=== PATIENT | female | born 1985 | race Caucasian/White ===

== ENCOUNTER → 2019-07-08 13:23 | Outpatient (BNVA) | payer SELFPAY | PROVIDERS: Family Provider Nurse Practitioner; PCP Nurse Practitioner; Visit Provider Nurse Practitioner | DX: M54.2 Cervicalgia (principal); M25.511 Pain in right shoulder; Z98.890 Other specified postprocedural states | CPT/HCPCS: 72040; 72072; 73030 ==

== ENCOUNTER → 2019-12-24 09:33 | Outpatient (BNVA) | payer SELFPAY | PROVIDERS: Family Provider Nurse Practitioner; PCP Nurse Practitioner; Visit Provider Nurse Practitioner Family | DX: R07.89 Other chest pain (principal); R10.2 Pelvic and perineal pain | CPT/HCPCS: 71046; 80053; 81000; 85025; 87491; 87591; 87661 ==

== ENCOUNTER → 2020-06-24 09:39 | Outpatient (BNVA) | payer SELFPAY | PROVIDERS: Family Provider Nurse Practitioner; PCP Nurse Practitioner; Visit Provider Nurse Practitioner | DX: F41.9 Anxiety disorder, unspecified (principal); E55.9 Vitamin D deficiency, unspecified | CPT/HCPCS: 82306; 85025 ==

== ENCOUNTER 2021-03-03 12:37 | Emergency (ER) | payer MEDICAID, SELFPAY ==
[2021-03-03 12:47] VITALS: BP 120/83; PULSE 87; RESP 20; TEMP 36.6; O2SAT 99; BMI 32.7
--- NOTE | 2021-03-03 15:24 | CT_ITS ---
WS: [id number] CT ABDOMEN AND PELVIS NONCONTRAST HISTORY: R flank pain TECHNIQUE: Imaging performed through the abdomen and pelvis. Coronal and sagittal reformats are submi tted. All CT scans at [facility] use at least one of these dose optimization techniques: auto mated exposure control; mA and/or kV adjustment per patient size (includes targeted exams where dose is matched to clinical indication); or iterative reconstruction. DLP: 1253.9 mGy.cm COMPARISON: None available. Lower thorax: Lung bases are clear. Visualized heart is normal. No hiatal hernia. Liver: Normal size liver. No mass or bile duct dilatation. Gallbladder: Normal gallbladder. Pancreas: Normal size and attenuation. Normal pancreatic duct. No pancreatitis or mass. Spleen: Normal. Adrenal glands: Normal. No mass. Right kidney: Normal size kidney with no mass or hydronephrosis. Left kidney: Normal size kidney. Nonobstructing renal calcifications in the mid to lower kidney with the largest measuring 6 mm. No ureteral obstruction or calcification. Aorta: Normal abdominal aorta, no aneurysm or atherosclerosis. No free fluid, intraperitoneal air or significant lymphadenopathy. GI tract: Normal appendix. No GI tract obstruction or diverticulosis. Abdominal wall: Small umbilical hernia contains fat only. Pelvis: Anteverted uterus is small amount of fluid along the endometrial canal. This may be physiolog ic. Osseous structures: Unremarkable. CT/CT kidney stone [id number] IMPRESSION: 1. Normal appendix. 2. No hydronephrosis. 3. Nonobstructing calcifications LEFT kidney. 4. No ureteral calcifications.
--- NOTE | 2021-03-03 15:26 | ED_ITS ---
Documented by User: Bella Elaine PA-C 03/03/21 16:50 HPI - Abdominal Pain General: Chief Complaint: Abdominal Pain Stated Complaint: PCP SENT POSS APENDX Time Seen by Provider: 03/03/21 15:19 Source: patient Mode of arrival: ambulatory Limitations: no limitations History of Present Illness: HPI narrative: 35-year-old female presents to the ER today for right lower quadrant and flank pain x4 days. Patient was seen by PCP today who was concerned about stone versus appendicitis. They did do a UA there and noted blood in patient's urine. Patient does report a history of a stone while she was however this feels slightly different as the last time was more suprapubic pain. Patient reports pain is worse with movement. patient reports she had some diarrhea that also started the same day as the right lower quadrant pain. She denies any fever or chills. Denies any other urinary symptoms at this time. She has been taking [id number] medications at this time. Patient denies any headache, chest pain, shortness of breath, nausea, vomiting. MD elicited complaint: flank pain Pertinent past history: other (diarrhea) Onset (ago): day(s) (4) Pain Consistency: constant and other (worse with movement and lying on the R side) Location: RLQ and R flank Severity: moderate Quality: stabbing and aching Radiation: R flank Relieving factors: nothing Associated Symptoms: Reports diarrhea and hematuria; Denies chills, constipation, dysuria, fever(s), nausea and vomiting Related Data: Date of Last Menstrual Period: 06/01/20 Review of Systems Const: Denies: fever(s), chills or fatigue ENMT: Denies: throat pain, nasal discharge or nasal congestion Card: Denies: chest pain or palpitations Resp: Denies: dyspnea, productive cough or wheezing GI: Reports: abdominal pain and diarrhea; Denies: nausea, vomiting or constipation : Reports: flank pain (R flank) and hematuria; Denies: dysuria, urinary frequency, urinary urgency or urinary hesitancy Musc: Reports: back pain (R low back) Skin/Breast: Denies: rash Neuro: Denies: headache(s) PFS ED PFSH: Medical History (Updated 03/03/21 @ 16:41 by Bella Elaine PA-C) Cervical neuralgia Chronic right shoulder pain Surgical History History of tubal ligation 2013 Status post right rotator cuff repair 2014 Family History Mother Cancer Diabetes Hypertension Father Hypertension Social History Smoking and tobacco status: never smoked Smoking risk assessment/counseling performed?: No Alcohol intake: never Desire information about alcohol rehabilitation?: No Counseling given: No Desire information about substance/drug rehabilitation?: No Counseling given: No Adopted: No Caregiver/support person: No Lives independently: Yes Household members: children and other Housing: House Marital status: Single Number of children: 3 service: No Current occupational status: employed Pets and animals: Yes History of recent travel: No Current gender identity: Female Female Reproductive History: Date of last menstrual period: 06/01/20 Physical Exam Const: COMMON NORMALS: average body habitus and patient oriented x3 GENERAL APPEARANCE: cooperative; not comfortable (slightly uncomfortable when lying flat) HENMT: COMMON NORMALS: normocephalic HEAD & SCALP: normocephalic Neck/C-Spine: COMMON NORMALS: no lymphadenopathy Resp: COMMON NORMALS: normal respiratory effort, No retractions and clear to auscultation bilaterally EFFORT & INSPECTION: Yes able to speak in complete sentences AUSCULTATION: clear to auscultation bilaterally, no rales, no rhonchi and no wheezes Cardio: COMMON NORMALS: regular rate, regular rhythm and No murmurs present (Cardio) RATE: regular rate RHYTHM: regular rhythm GI: COMMON NORMALS: Soft to palpation PALPATION: Yes Soft to palpation and Yes Tenderness to palpation present (GI) (RLQ/R flank) Details: RLQ : COMMON NORMALS: Yes no CVA tenderness BLADDER/KIDNEY EXAM: Yes no CVA tenderness, No CVA tenderness and Yes other (R flank tenderness to palpation, no suprapubic tenderness) Back/Pelvis: COMMON NORMALS: no CVA tenderness GENERAL BACK: No CVA tenderness Extremity: COMMON NORMALS: normal to inspection and full ROM Neuro: COMMON NORMALS: patient oriented x3 and moves all extremities Psych: COMMON NORMALS: mental status grossly normal and Normal thought process present THOUGHT PROCESS: Normal thought process present Skin: COMMON NORMALS: no rashes or lesions noted GENERAL SKIN EXAM: no rashes or lesions noted Course ED course: 35-year-old female presents to the ER today for right lower quadrant/flank pain x4 days. Patient was sent by PCP to rule out appendicitis versus kidney stone. Patient does have a history of a kidney stone however this feels slightly different. Denies any fever or chills at this time. Has some diarrhea associated but no other symptoms. Patient did have a UA done at the doctor's office which showed blood in her urine. Reevaluation(s): Reevaluation #1: Patient is comfortable at this time. Patient reports very minimal pain. Report given to Agustin Celestin at shift change. Waiting for a UA and then patient will be discharged. Vital Signs: Vital signs: Vital Signs Temperature 98.2 F 03/03/21 15:55 Pulse Rate 65 03/03/21 15:55 Respiratory Rate 17 03/03/21 15:55 Blood Pressure 127/69 03/03/21 15:55 Pulse Oximetry 98 03/03/21 15:55 MDM - Abdominal Pain Lab Data: Lab results narrative: CBC- WNL CMP- unremarkable Labs: Lab Results 03/03/21 03/03/21 03/03/21 12:43 12:43 16:03 WBC 6.8 10^3/uL 10^3/ uL (4.0-10.0) RBC 4.11 10^6/uL 10^6 /uL (4.1-5.3) Hgb 12.8 g/dL g/dL (11.5-15.3) Hct 36.6 % L % (37.0-47.0) MCV 89.1 fl fl (81-99) MCH 31.1 pg pg (28.0-34.0) MCHC 35.0 g/dL g/dL (30.0-36.0) RDW 12.6 % % (12.1-15.1) Plt Count 294 10^3/cmm 10^3 /cmm (130-400) MPV 9.2 fL fL (7.4-10.4) Neut % (Auto) 59.2 % % Lymph % (Auto) 30.8 % % [place] % (Auto) 8.6 % % Eos % (Auto) 1.0 % % Baso % (Auto) 0.3 % % Neut # (Auto) 3.99 10^3/uL 10^3 /uL (1.8-7.7) Lymph # (Auto) 2.1 10^3/uL 10^3/ uL (0.8-4.8) [place] # (Auto) 0.6 10^3/uL 10^3/ uL (0.2-0.9) Eos # (Auto) 0.1 10^3/uL 10^3/ uL (0.0-0.8) Baso # (Auto) 0.0 10^3/uL 10^3/ uL (0.0-0.1) Nucleated RBC % (a uto) 0 % % Nucleated RBCs # 0.0 /100WBC /100W BC Sodium Potassium Chloride Carbon Dioxide Anion Gap BUN Creatinine GFR Calculation Glucose Calculated Osmolal ity Calcium Total Bilirubin AST ALT Alkaline Phosphata se Total Protein Albumin Globulin Lipase HCG, Qual Negative (Negative) Urine Color Yellow (Yellow) Urine Appearance Clear (CLEAR) Urine pH 6.5 (5-7) Ur Specific Gravit y 1.010 (1.005-1.030) Urine Protein Neg (Negative) Urine Glucose (UA) Norm (Normal) Urine Ketones Negative (Negative) Urine Blood 2+ H (Negative) Urine Nitrate Negative (Negative) Urine Bilirubin Neg (Negative) Urine Urobilinogen Norm mg/dL mg/dL (Negative) Ur Leukocyte Lyla ase Negative (Negative) Urine RBC 5-10 /hpf H /hpf (0-2) Urine WBC 0-4 /hpf H /hpf (0-5) Ur Squamous Epith Cells 5-10 /hpf H /hpf (0-5) Amorphous Sediment Not Reportable Urine Bacteria 1+ /hpf H /hpf (NONE) Urine Mucus 1+ /hpf /hpf 03/03/21 16:03 WBC RBC Hgb Hct MCV MCH MCHC RDW Plt Count MPV Neut % (Auto) Lymph % (Auto) [place] % (Auto) Eos % (Auto) Baso % (Auto) Neut # (Auto) Lymph # (Auto) [place] # (Auto) Eos # (Auto) Baso # (Auto) Nucleated RBC % (a uto) Nucleated RBCs # Sodium 141 mmol/L mmol/L (136-145) Potassium 4.1 mmol/L mmol/L (3.5-5.1) Chloride 109 mmol/L H mmol /L (98-107) Carbon Dioxide 22 mmol/L mmol/L (22-29) Anion Gap 14.1 (5-19) BUN 8 mg/dL mg/dL (6-20) Creatinine 0.4 mg/dL L mg/dL (0.5-0.9) GFR Calculation 181.6 mL/min H mL /min (90-130) Glucose 74 mg/dL mg/dL (65-115) Calculated Osmolal ity 289 mOsm/kg mOsm/ kg (285-295) Calcium 8.9 mg/dL mg/dL (8.5-10.5) Total Bilirubin 0.2 mg/dL mg/dL (0.15-1.2) AST 22 U/L U/L (0-32) ALT 20 U/L U/L (0-33) Alkaline Phosphata se 43 IU/L IU/L (35-105) Total Protein 7.1 g/dL g/dL (6.6-8.7) Albumin 4.1 g/dL g/dL (3.5-5.2) Globulin 3.0 g/dL g/dL (1.3-4.6) Lipase 20 U/L U/L (13-60) HCG, Qual Urine Color Urine Appearance Urine pH Ur Specific Gravit y Urine Protein Urine Glucose (UA) Urine Ketones Urine Blood Urine Nitrate Urine Bilirubin Urine Urobilinogen Ur Leukocyte Lyla ase Urine RBC Urine WBC Ur Squamous Epith Cells Amorphous Sediment Urine Bacteria Urine Mucus Imaging Data ^: CT Abd/Pel: Radiologist's impression: [address] [address] [address] Scan Report Signed Patient: Irma Damon Unit #: [id number] : 1985 Age/Sex: 35 / F ADM Date: 03/03/21 Loc: ER Room/Bed: Attending Dr: Ordering Provider/Ordering MD: Bella Elaine Date of Service: 03/03/21 Procedure(s): CT kidney stone [id number] Accession Number(s): [id number] Report Number: [id number] WS: [id number] CT ABDOMEN AND PELVIS NONCONTRAST HISTORY: R flank pain TECHNIQUE: Imaging performed through the abdomen and pelvis. Coronal and sagittal reformats are submitted. All CT scans at [facility] use at least one of these dose optimization techniques: automated exposure control; mA and/or kV adjustment per patient size (includes targeted exams where dose is matched to clinical indication); or iterative reconst ruction. DLP: 1253.9 mGy.cm COMPARISON: None available. Lower thorax: Lung bases are clear. Visualized heart is normal. No hiatal hernia. Liver: Normal size liver. No mass or bile duct dilatation. Gallbladder: Normal gallbladder. Pancreas: Normal size and attenuation. Normal pancreatic duct. No pancreatitis or mass. Spleen: Normal. Adrenal glands: Normal. No mass. Right kidney: Normal size kidney with no mass or hydronephrosis. Left kidney: Normal size kidney. Nonobstructing renal calcifications in the mid to lower kidney with the largest measuring 6 mm. No ureteral obstruction or calcification. Aorta: Normal abdominal aorta, no aneurysm or atherosclerosis. No free fluid, intraperitoneal air or significant lymphadenopathy. GI tract: Normal appendix. No GI tract obstruction or diverticulosis. Abdominal wall: Small umbilical hernia contains fat only. Pelvis: Anteverted uterus is small amount of fluid along the endometrial canal. This may be physiologic. Osseous structures: Unremarkable. CT/CT kidney stone [id number] IMPRESSION: 1. Normal appendix. 2. No hydronephrosis. 3. Nonobstructing calcifications LEFT kidney. 4. No ureteral calcifications. Dictated By: Sindhu Jensen DO Signed By: Sindhu Jensen DO Signed Date/Time: 03/03/21 1600 DD/ 1556 Critical Care Time Critical Care Time: Critical Care Time: No Discharge Plan Discharge Patient Disposition: Home Clinical Impression: Abdominal pain, RLQ Condition: Stable Prescriptions: No Action acetaminophen PO PRNRF: 0 triamcinolone acetonide 0.1 % cream 1 applic TOPICAL BID PRN (Reason: itching) Qty: 30 RF: 0 doxepin 50 mg capsule 50 - 100 mg PO BID Qty: 90 RF: 5 cetirizine [Zyrtec] 10 mg tablet 10 mg PO DAILY Qty: 30 RF: 5 famotidine [Pepcid] 20 mg tablet 20 mg PO Q12H Qty: 60 RF: 5 zonisamide 100 mg capsule 100 mg PO BID Qty: 60 RF: 5 Discharge Orders: Discharge ED (Routine); Ordered 10/01/21 Ordered By: Agustin Celestin Referrals: Lizzy Pal FNP-C [Primary Care Provider] - Discharge Diet: Usual diet Discharge Activity: Resume usual activity Patient Instructions: Abdominal Pain (ED), Opioid Safety Activity Restrictions/Additional Instructions: Home and rest. Drink plenty of fluids. Use acetaminophen and ibuprofen for pain. Activity as tolerated. Follow-up with primary care as needed. Monitor for worsening pain, high fever, or new concerns. Sign Out Sign Out Data: Patient Sign Out occurred on 03/03/21 at 16:57. Patient's care was discussed, and care was transferred from to Agustin Celestin. Coding Level of Care Code ED Shampooer for Chg Fwd Exam Comprehensive Documented by User: DIANNE Merida 03/03/21 18:02 HPI - Abdominal Pain General: Chief Complaint: Abdominal Pain Stated Complaint: PCP SENT POSS APENDX Time Seen by Provider: 03/03/21 15:19 PENDING SALE TO [facility] ED PFSH: Medical History (Updated 03/03/21 @ 16:41 by Bella Elaine PA-C) Cervical neuralgia Chronic right shoulder pain Surgical History History of tubal ligation 2013 Status post right rotator cuff repair 2014 Family History Mother Cancer Diabetes Hypertension Father Hypertension Social History Smoking and tobacco status: never smoked Smoking risk assessment/counseling performed?: No Alcohol intake: never Desire information about alcohol rehabilitation?: No Counseling given: No Desire information about substance/drug rehabilitation?: No Counseling given: No Adopted: No Caregiver/support person: No Lives independently: Yes Household members: children and other Housing: House Marital status: Single Number of children: 3 service: No Current occupational status: employed Pets and animals: Yes History of recent travel: No Current gender identity: Female Course Vital Signs: Vital signs: Vital Signs Temperature 98.2 F 03/03/21 15:55 Pulse Rate 65 03/03/21 15:55 Respiratory Rate 17 03/03/21 15:55 Blood Pressure 127/69 03/03/21 15:55 Pulse Oximetry 98 03/03/21 15:55 MDM - Abdominal Pain MDM Narrative: Medical decision making narrative: Patient was referred to the ER from urgent care for concerns of right lower quadrant pain to rule out appendicitis. I received this patient from Bella Elaine PA-C. Patient appears well on my exam. Patient has some right lower quadrant tenderness. Bowel sounds are present. Skin is warm and dry. We were awaiting urinalysis report. CT and labs were unremarkable. Urinalysis came back with significant amount of squamous cells trace of red blood cells and a trace of white blood cells. It was suspected patient had a ruptured ovarian cyst due to a small amount of fluid in the free pelvis. I reviewed with patient need for monitoring for fever, worsening pain, or blood in vomit or stool. Patient reported understanding and need for return and follow-up. Differential Diagnosis: Differential diagnosis abdominal pain: Likely abdominal pain, acute appendicitis, calculus of kidney and constipation Lab Data: Labs: Lab Results 03/03/21 03/03/21 03/03/21 12:43 12:43 16:03 WBC 6.8 10^3/uL 10^3/ uL (4.0-10.0) RBC 4.11 10^6/uL 10^6 /uL (4.1-5.3) Hgb 12.8 g/dL g/dL (11.5-15.3) Hct 36.6 % L % (37.0-47.0) MCV 89.1 fl fl (81-99) MCH 31.1 pg pg (28.0-34.0) MCHC 35.0 g/dL g/dL (30.0-36.0) RDW 12.6 % % (12.1-15.1) Plt Count 294 10^3/cmm 10^3 /cmm (130-400) MPV 9.2 fL fL (7.4-10.4) Neut % (Auto) 59.2 % % Lymph % (Auto) 30.8 % % [place] % (Auto) 8.6 % % Eos % (Auto) 1.0 % % Baso % (Auto) 0.3 % % Neut # (Auto) 3.99 10^3/uL 10^3 /uL (1.8-7.7) Lymph # (Auto) 2.1 10^3/uL 10^3/ uL (0.8-4.8) [place] # (Auto) 0.6 10^3/uL 10^3/ uL (0.2-0.9) Eos # (Auto) 0.1 10^3/uL 10^3/ uL (0.0-0.8) Baso # (Auto) 0.0 10^3/uL 10^3/ uL (0.0-0.1) Nucleated RBC % (a uto) 0 % % Nucleated RBCs # 0.0 /100WBC /100W BC Sodium Potassium Chloride Carbon Dioxide Anion Gap BUN Creatinine GFR Calculation Glucose Calculated Osmolal ity Calcium Total Bilirubin AST ALT Alkaline Phosphata se Total Protein Albumin Globulin Lipase HCG, Qual Negative (Negative) Urine Color Yellow (Yellow) Urine Appearance Clear (CLEAR) Urine pH 6.5 (5-7) Ur Specific Gravit y 1.010 (1.005-1.030) Urine Protein Neg (Negative) Urine Glucose (UA) Norm (Normal) Urine Ketones Negative (Negative) Urine Blood 2+ H (Negative) Urine Nitrate Negative (Negative) Urine Bilirubin Neg (Negative) Urine Urobilinogen Norm mg/dL mg/dL (Negative) Ur Leukocyte Lyla ase Negative (Negative) Urine RBC 5-10 /hpf H /hpf (0-2) Urine WBC 0-4 /hpf H /hpf (0-5) Ur Squamous Epith Cells 5-10 /hpf H /hpf (0-5) Amorphous Sediment Not Reportable Urine Bacteria 1+ /hpf H /hpf (NONE) Urine Mucus 1+ /hpf /hpf 03/03/21 16:03 WBC RBC Hgb Hct MCV MCH MCHC RDW Plt Count MPV Neut % (Auto) Lymph % (Auto) [place] % (Auto) Eos % (Auto) Baso % (Auto) Neut # (Auto) Lymph # (Auto) [place] # (Auto) Eos # (Auto) Baso # (Auto) Nucleated RBC % (a uto) Nucleated RBCs # Sodium 141 mmol/L mmol/L (136-145) Potassium 4.1 mmol/L mmol/L (3.5-5.1) Chloride 109 mmol/L H mmol /L (98-107) Carbon Dioxide 22 mmol/L mmol/L (22-29) Anion Gap 14.1 (5-19) BUN 8 mg/dL mg/dL (6-20) Creatinine 0.4 mg/dL L mg/dL (0.5-0.9) GFR Calculation 181.6 mL/min H mL /min (90-130) Glucose 74 mg/dL mg/dL (65-115) Calculated Osmolal ity 289 mOsm/kg mOsm/ kg (285-295) Calcium 8.9 mg/dL mg/dL (8.5-10.5) Total Bilirubin 0.2 mg/dL mg/dL (0.15-1.2) AST 22 U/L U/L (0-32) ALT 20 U/L U/L (0-33) Alkaline Phosphata se 43 IU/L IU/L (35-105) Total Protein 7.1 g/dL g/dL (6.6-8.7) Albumin 4.1 g/dL g/dL (3.5-5.2) Globulin 3.0 g/dL g/dL (1.3-4.6) Lipase 20 U/L U/L (13-60) HCG, Qual Urine Color Urine Appearance Urine pH Ur Specific Gravit y Urine Protein Urine Glucose (UA) Urine Ketones Urine Blood Urine Nitrate Urine Bilirubin Urine Urobilinogen Ur Leukocyte Lyla ase Urine RBC Urine WBC Ur Squamous Epith Cells Amorphous Sediment Urine Bacteria Urine Mucus Discharge Plan Discharge Patient Disposition: Home Clinical Impression: Abdominal pain, RLQ Condition: Stable Prescriptions: No Action acetaminophen PO PRNRF: 0 triamcinolone acetonide 0.1 % cream 1 applic TOPICAL BID PRN (Reason: itching) Qty: 30 RF: 0 doxepin 50 mg capsule 50 - 100 mg PO BID Qty: 90 RF: 5 cetirizine [Zyrtec] 10 mg tablet 10 mg PO DAILY Qty: 30 RF: 5 famotidine [Pepcid] 20 mg tablet 20 mg PO Q12H Qty: 60 RF: 5 zonisamide 100 mg capsule 100 mg PO BID Qty: 60 RF: 5 Discharge Orders: Discharge ED (Routine); Ordered 03/03/21 Ordered By: Agustin Celestin Referrals: Lizzy Pal, JOHANNA [Primary Care Provider] - Discharge Diet: Usual diet Discharge Activity: Resume usual activity Patient Instructions: Abdominal Pain (ED), Opioid Safety Activity Restrictions/Additional Instructions: Home and rest. Drink plenty of fluids. Use acetaminophen and ibuprofen for pain. Activity as tolerated. Follow-up with primary care as needed. Monitor for worsening pain, high fever, or new concerns. Sign Out Sign Out Data: Patient Sign Out occurred on 03/03/21 at 16:57. Patient's care was discussed, and care was transferred from to Agustin Celestin. Coding Level of Care Code ED Shampooer for Chg Fwd Exam Comprehensive
[2021-03-03 15:55] VITALS: BP 127/69; PULSE 65; RESP 17; TEMP 36.8; O2SAT 98
[2021-03-03 16:14] LABS: Basophils % 0.3 %; Eosinophils # 0.1 10^3/uL (0.0-0.8); Hematocrit 36.6 % (37.0-47.0); Hemoglobin 12.8 g/dL (11.5-15.3); Lymphocytes # 2.1 10^3/uL (0.8-4.8); Lymphocytes % 30.8 %; Mean Corpuscular Hemoglobin 31.1 pg (28.0-34.0); Mean Corpuscular Volume 89.1 fl (81-99); Mean Platelet Volume 9.2 fL (7.4-10.4); Monocytes # 0.6 10^3/uL (0.2-0.9); Monocytes % 8.6 %; Neutrophils # 3.99 10^3/uL (1.8-7.7); Neutrophils % 59.2 %; Nucleated Red Blood Cells % 0 %; Platelet Count 294 10^3/cmm (130-400); Red Blood Count 4.11 10^6/uL (4.1-5.3); Red Cell Distribution Width 12.6 % (12.1-15.1); White Blood Count 6.8 10^3/uL (4.0-10.0)
[2021-03-03 16:23] LABS: HCG Qualitative Urine. Negative (Negative)
[2021-03-03 16:31] LABS: Alanine Aminotransferase 20 U/L (0-33); Albumin Level 4.1 g/dL (3.5-5.2); Alkaline Phosphatase 43 IU/L (35-105); Blood Urea Nitrogen 8 mg/dL (6-20); Calcium 8.9 mg/dL (8.5-10.5); Carbon Dioxide 22 mmol/L (22-29); Chloride 109 mmol/L (98-107); Glomerular Filtration Rate 181.6 mL/min (90-130); Glucose 74 mg/dL (65-115); Lipase 20 U/L (13-60); Osmolality Calculated 289 mOsm/kg (285-295); Sodium 141 mmol/L (136-145); Total Bilirubin 0.2 mg/dL (0.15-1.2); Total Protein 7.1 g/dL (6.6-8.7)
[2021-03-03 16:33] LABS: Anion Gap 14.1 (5-19); Aspartate Amino Transferase 22 U/L (0-32); Potassium 4.1 mmol/L (3.5-5.1)
[2021-03-03 17:00] LABS: Protein Urine Neg (Negative); Urine Appearance Clear (CLEAR); Urine Color Yellow (Yellow); pH Urine 6.5 (5-7)
[2021-03-03 17:01] LABS: Add Urine Microscopic? YES; Bacteria Urine 1+ /hpf; Bilirubin Urine Neg (Negative); Blood Urine 2+ (Negative); Glucose Urine UA Norm (Normal); Ketones Urine Negative (Negative); Leukocyte Esterase Urine Negative (Negative); Mucus Urine 1+ /hpf; Nitrate Urine Negative (Negative); Urobilinogen Urine Norm (Negative); WBC Urine 0-4 /hpf (0-5)
[2021-03-03 17:02] LABS: Add Urine Culture? No
[2021-03-03] MEDS: ketorolac 30 mg/mL INJ 15 MG IVP (17:13)
== END 2021-03-03 18:49 | disposition home or self-care (01) ==
PROVIDERS: Physician Assistant; Emergency Provider Nurse Practitioner Family; PCP Nurse Practitioner
DX: R10.31 Right lower quadrant pain (principal)
CPT/HCPCS: 74176; 80053; 81000; 81001; 81025; 83690; 85025; 96374; 99283; J1885

== ENCOUNTER → 2021-03-08 10:45 | Outpatient (BNVA) | payer MEDICAID, SELFPAY | PROVIDERS: PCP Nurse Practitioner; Visit Provider Nurse Practitioner | DX: R31.9 Hematuria, unspecified (principal); N73.9 Female pelvic inflammatory disease, unspecified; M54.12 Radiculopathy, cervical region; Z12.4 Encounter for screening for malignant neoplasm of cervix | CPT/HCPCS: 81000; 87624 ==

== ENCOUNTER → 2021-05-16 17:10 | Outpatient (BNVA) | payer MEDICAID, SELFPAY | PROVIDERS: PCP Nurse Practitioner; Visit Provider Nurse Practitioner Family | DX: Z11.52 Encounter for screening for COVID-19 (principal); J02.9 Acute pharyngitis, unspecified | CPT/HCPCS: 87635 ==

== ENCOUNTER → 2022-01-19 11:49 | Outpatient (BNVA) | payer BC, MEDICAID, SELFPAY | PROVIDERS: PCP Nurse Practitioner; Visit Provider Nurse Practitioner | DX: E55.9 Vitamin D deficiency, unspecified (principal); Z13.6 Encounter for screening for cardiovascular disorders; Z12.39 Encounter for other screening for malignant neoplasm of breast | CPT/HCPCS: 80053; 82306; 82607; 85025 ==

== ENCOUNTER 2022-01-23 13:40 | Outpatient (CLI) | payer BC, MEDICAID, SELFPAY ==
--- NOTE | 2022-01-23 14:04 | MM_ITS ---
WS: [id number] BILATERAL 3D TOMOSYNTHESIS DIGITAL SCREENING MAMMOGRAPHY WITH CAD CLINICAL INFORMATION: Z12.39 - Encounter for other screening for malignant neop... HISTORY: Screening mammogram. Bilateral breast pain. COMPARISON: None. TECHNIQUE: Bilateral CC and MLO views. FINDINGS: The breasts are composed of heterogeneous fibroglandular density tissue, which can limit the detectio n of small underlying mass lesions. A few tiny punctate calcifications. No suspicious mass, asymmetry , calcifications, or architectural distortion. No evidence of malignancy. MM/[place] [id number] IMPRESSION: BI-RADS: 2-Benign FOLLOW UP: 1 Year Follow-up Recommend return to annual screening mammography.
== END 2022-01-23 13:41 | disposition home or self-care (01) ==
LOC: RAD 13:42
PROVIDERS: PCP Nurse Practitioner; Visit Provider Nurse Practitioner
DX: Z12.31 Encounter for screening mammogram for malignant neoplasm of breast (principal)
CPT/HCPCS: 77063; 77067

== ENCOUNTER → 2022-04-18 12:32 | Outpatient (BNVA) | payer OTHER, SELFPAY | PROVIDERS: PCP Nurse Practitioner; Visit Provider Nurse Practitioner | DX: M54.12 Radiculopathy, cervical region (principal); M25.561 Pain in right knee | CPT/HCPCS: 72040; 73030; 73562 ==

== ENCOUNTER 2022-08-31 09:22 | Outpatient (CLI) | payer OTHER, BC, SELFPAY ==
--- NOTE | 2022-08-31 09:30 | USCV_ITS ---
Irma Damon Age: 37 Gender: F : 1985 Exam Date: 08/31/2022 09:41 Ordering Phys: Lizzy Pal Technologist: CT Exam Location: [facility] [place] Indication: PROCEDURES: Venous duplex imaging was performed in only the right lower extremity. In addition, the posterior tibial and peroneal trunk were evaluated. On the right side, the common femoral, superficial femoral, profunda femoral, popliteal, posterior tibial, greater saphenous veins and the peroneal trunk were identified and interrogated in the standard fashion. These veins were found to be easily compressible with spontaneous blood flow. No evidence of insufficiency or thrombus noted. CONCLUSIONS No evidence of right lower extremity DVT. 2.0 x 2.4 x 2.5cm popliteal cyst Marc Serra MD (Electronically Signed) Final Date: 31 August 2022 10:03 S
== END 2022-08-31 09:23 | disposition home or self-care (01) ==
PROVIDERS: PCP Nurse Practitioner; Visit Provider Nurse Practitioner
DX: M79.661 Pain in right lower leg (principal); M79.89 Other specified soft tissue disorders; M71.21 Synovial cyst of popliteal space [Baker], right knee
CPT/HCPCS: 93971

== ENCOUNTER → 2023-07-10 13:50 | Outpatient (BNVA) | payer OTHER, BC, SELFPAY | PROVIDERS: PCP Nurse Practitioner; Visit Provider Nurse Practitioner Family | DX: R23.3 Spontaneous ecchymoses (principal); M79.89 Other specified soft tissue disorders; Z79.899 Other long term (current) drug therapy | CPT/HCPCS: 80053; 80061; 84443; 85025 ==

== ENCOUNTER 2023-07-30 07:52 | Outpatient (CLI) | payer OTHER, BC, MEDICAID, SELFPAY ==
--- NOTE | 2023-07-30 08:15 | USCV_ITS ---
Irma Damon Age: 38 Gender: F : 1985 Exam Date: 07/30/2023 08:20 Ordering Phys: Monae Escobar COMMUNICATIONS EXECUTIVE-C Technologist: CT Exam Location: [facility] – [place] Indication: le pain Risk Factors: Previous Vascular Surgery: RIGHT LEFT BP: 126.0 / 84.00 BP: 125.0/ 88.00 0 0 Waveform Velocity (cm/s) Velocity (cm/s) Waveform Triphasic 119.0 Iliac Prox 107.0 Triphasic Triphasic 136.0 Iliac Mid 112.0 Triphasic Triphasic 164.0 Iliac Distal 104.0 Triphasic Triphasic 147.0 FLUE GAS ANALYST 114.2 Triphasic Triphasic 110.0 SFA Prox 111.9 Triphasic Triphasic 102.9 SFA Mid 123.0 Triphasic Triphasic SFA Dist Triphasic 77.0 120.0 Triphasic 57.0 POP 56.0 Triphasic Triphasic 94.0 STACK YIELD ENGINEER 93.1 Triphasic Triphasic 51.0 DPA 63.0 Triphasic 1.1 QUINTEN 1.1 FINDINGS normal arterial bakers cyst on rt Lobulated echolucency's in the right popliteal fossa, measuring 3.0 x 2.7 cm Normal Doppler flow velocities and waveforms in the arteries bilaterally Resting QUINTEN 1.1 bilaterally Minimal intimal thickening of the iliac and femoral arteries bilaterally CONCLUSIONS Normal resting ABIs bilaterally. Normal arterial Doppler waveforms and velocities bilaterally. Minimal intimal thickening in the iliac and femoral arteries bilaterally with No significant arterial obstruction, based on the above findings Dr Rei Kaur MD [facility] (Electronically Signed) Final Date: 31 July 2023 09:19 S
== END 2023-07-30 07:53 | disposition home or self-care (01) ==
LOC: RAD 07:53
PROVIDERS: PCP Nurse Practitioner; Visit Provider Nurse Practitioner Family
DX: M79.89 Other specified soft tissue disorders (principal); R23.3 Spontaneous ecchymoses; M79.605 Pain in left leg; M79.604 Pain in right leg
CPT/HCPCS: 93925

== ENCOUNTER → 2023-07-31 14:32 | Outpatient (BNVA) | payer OTHER, BC, MEDICAID, SELFPAY | PROVIDERS: PCP Nurse Practitioner; Visit Provider Nurse Practitioner Family | DX: R79.89 Other specified abnormal findings of blood chemistry (principal) | CPT/HCPCS: 86705; 86706; 86709; 86803; 87340 ==

== ENCOUNTER 2023-08-06 08:07 | Outpatient (CLI) | payer OTHER, BC, MEDICAID, SELFPAY ==
--- NOTE | 2023-08-06 08:30 | USCV_ITS ---
Irma Damon Age: 38 Gender: F : 1985 Exam Date: 08/06/2023 08:26 Ordering Phys: Monae Escobar SHANK SORTER-Carlita Technologist: BRONWYN [place] [facility] [place]: BLE PAIN AND SWELLING HISTORY: Lower extremity swelling. Lower extremity pain. PROCEDURES: Venous duplex imaging was performed in bilateral lower extremities. The following venous structures were evaluated: common femoral vein, profunda vein, proximal portion of the greater saphenous vein, superficial femoral vein, and the popliteal vein. In addition, the posterior tibial and peroneal trunk were evaluated. Serial compression, augmentation maneuvers, and spectral Doppler flow evaluation were performed. FINDINGS: No evidence of DVT seen in any vessel visualized at this time. CONCLUSIONS No evidence of right lower extremity DVT. No evidence of left lower extremity DVT. RIGHT popliteal cyst measuring 3.2 x 2.7cm Marc Serra MD (Electronically Signed) Final Date: 06 August 2023 08:52 S
== END 2023-08-06 08:08 | disposition home or self-care (01) ==
LOC: RAD 08:07
PROVIDERS: PCP Nurse Practitioner; Visit Provider Nurse Practitioner Family
DX: R23.3 Spontaneous ecchymoses (principal); M79.89 Other specified soft tissue disorders; M71.21 Synovial cyst of popliteal space [Baker], right knee
CPT/HCPCS: 93970

== ENCOUNTER 2023-08-14 08:12 | Outpatient (CLI) | payer OTHER, BC, MEDICAID, SELFPAY ==
--- NOTE | 2023-08-14 08:30 | US_ITS ---
WS: [id number] ULTRASOUND ABDOMEN LIMITED CLINICAL INFORMATION: R70.82 - Other specified abnormal findings of blood chemi... COMPARISON: None. FINDINGS: Liver Size: Normal. Craniocaudal length: 13.9 cm. Echogenicity: Coarse Surface nodularity: None. Mass (size and location): None. Bile ducts Intrahepatic ducts: Normal. Common bile duct diameter: 0.2 cm. Gallbladder Normal. Gallstones: None. Gallbladder sludge: None. Gallbladder wall thickening: None. Pericholecystic fluid: None. Sonographic Dias sign: Absent. Pancreas Normal as visualized. Right kidney: Normal. Hydronephrosis: None. Size: 11.0 cm x 5.5 cm x 6.0 cm. Abdominal aorta and IVC Visualized portions are normal. Ascites: None. IMPRESSION: 1. Normal liver size. Coarse hepatic echogenicity likely due to fatty infiltration. 2. Normal gallbladder. No cholelithiasis. 3. Normal common bile duct. 4. No hydronephrosis in the RIGHT kidney.
== END 2023-08-14 08:13 | disposition home or self-care (01) ==
LOC: RAD 08:12
PROVIDERS: PCP Nurse Practitioner; Visit Provider Nurse Practitioner Family
DX: R79.89 Other specified abnormal findings of blood chemistry (principal); K76.0 Fatty (change of) liver, not elsewhere classified
CPT/HCPCS: 76705

== ENCOUNTER → 2023-10-16 10:53 | Outpatient (BNVA) | payer OTHER, BC, MEDICAID, SELFPAY | PROVIDERS: PCP Nurse Practitioner; Visit Provider Nurse Practitioner Family | DX: M79.89 Other specified soft tissue disorders (principal); M79.601 Pain in right arm | CPT/HCPCS: 73090 ==

== ENCOUNTER 2024-07-06 08:51 | Outpatient (CLI) | payer OTHER, MEDICAID, SELFPAY ==
--- NOTE | 2024-07-06 08:58 | XRR_ITS ---
PROCEDURE INFORMATION: Exam: XR Right Shoulder Exam date and time: 07/06/2024 9:02 AM Age: 39 years old Clinical indication: Pain; Shoulder; Right; Additional info: M25.511 - pain in right shoulder TECHNIQUE: Imaging protocol: Radiologic exam of the right shoulder. Views: 2 or more views. COMPARISON: CR XR shoulder RT min 2V* [id number] 04/18/2022 12:44 PM FINDINGS: Bones/joints: Similar appearance of postsurgical change of the distal right clavicle with focal well ossified density at the acromioclavicular joint space. Glenohumeral joint is intact. No fracture or dislocation. Lungs: Visualized lung chaudhari are unremarkable. Soft tissues: Normal. XR/XR shoulder RT min 2V* [id number] IMPRESSION: No acute osseous abnormality.
--- NOTE | 2024-07-06 08:58 | XRR_ITS ---
PROCEDURE INFORMATION: Exam: XR Lumbosacral Spine Exam date and time: 07/06/2024 9:02 AM Age: 39 years old Clinical indication: Low back pain; Additional info: M54.50 - low back pain, unspecified TECHNIQUE: Imaging protocol: Radiologic exam of the lumbosacral spine. Views: 2 or 3 views. COMPARISON: CT kidney stone [id number] 03/03/2021 3:32 PM FINDINGS: Bones/joints: Disc height loss at L3-L5 with mild facet arthropathy. Mild degenerative change of the lower thoracic spine. Minimal marginal osteophytosis of the [id number]-right sacroiliac joint. Soft tissues: Unremarkable. Organs: Left nephrolithiasis. XR/XR lumbar spine 2-3V* [id number] IMPRESSION: Mild lower lumbar spondylosis.
== END 2024-07-06 08:52 | disposition home or self-care (01) ==
LOC: RAD 08:53
PROVIDERS: PCP Nurse Practitioner; Visit Provider Nurse Practitioner Family
DX: M25.511 Pain in right shoulder (principal); G89.29 Other chronic pain; M47.896 Other spondylosis, lumbar region; Z98.890 Other specified postprocedural states; R93.7 Abnormal findings on diagnostic imaging of other parts of musculoskeletal system; N20.0 Calculus of kidney
CPT/HCPCS: 72100; 73030

== ENCOUNTER → 2024-12-08 11:31 | Outpatient (BNVA) | payer OTHER, MEDICAID, SELFPAY | PROVIDERS: PCP Nurse Practitioner; Visit Provider Nurse Practitioner Family | DX: M25.531 Pain in right wrist (principal); S69.91XA Unspecified injury of right wrist, hand and finger(s), initial encounter; X58.XXXA Exposure to other specified factors, initial encounter | CPT/HCPCS: 73110 ==

== ENCOUNTER → 2025-05-04 15:47 | Outpatient (BNVA) | payer OTHER, MEDICAID, SELFPAY | PROVIDERS: PCP Nurse Practitioner; Visit Provider Nurse Practitioner Family | DX: R07.89 Other chest pain (principal); R05.9 Cough, unspecified | CPT/HCPCS: 71046 ==

== ENCOUNTER → 2025-05-12 15:50 | Outpatient (BNVA) | payer OTHER, MEDICAID, SELFPAY | PROVIDERS: PCP Nurse Practitioner; Visit Provider Nurse Practitioner Family | DX: Z12.39 Encounter for other screening for malignant neoplasm of breast (principal); Z13.6 Encounter for screening for cardiovascular disorders; R11.2 Nausea with vomiting, unspecified | CPT/HCPCS: 80053; 80061; 84443; 85025; 86003; 86008 ==

== ENCOUNTER 2025-05-19 11:12 | Outpatient (CLI) | payer OTHER, MEDICAID, SELFPAY ==
--- NOTE | 2025-05-19 11:20 | MM_ITS ---
WS: [id number] BILATERAL SCREENING DIGITAL TOMOSYNTHESIS MAMMOGRAM WITH CAD HISTORY: Z12.39 - Encounter for other screening for malignant neop... COMPARISON: 01/23/2022 Bilateral CC and MLO views with tomosynthesis and synthetic mammography submitted. Computer aided detection analyzed. Breast composition: The breasts are heterogeneously dense, which may obscure small masses. No suspicious masses, microcalcifications or architectural distortion. Benign scattered calcifications in each breast. MM/MM [facility] tomosynthesis [id number] IMPRESSION: BI-RADS: 2 - Benign FOLLOW UP: 1 Year Follow-up
== END 2025-05-19 11:13 | disposition home or self-care (01) ==
LOC: MOBLMAM 11:14
PROVIDERS: PCP Nurse Practitioner; Visit Provider Nurse Practitioner Family
DX: Z12.31 Encounter for screening mammogram for malignant neoplasm of breast (principal); R92.333 Mammographic heterogeneous density, bilateral breasts; R92.1 Mammographic calcification found on diagnostic imaging of breast
CPT/HCPCS: 77063; 77067